=== PATIENT | male | born 1960 | race Caucasian/White ===

== ENCOUNTER → 2016-04-21 | Outpatient (CLI) | payer OTHER | LOC: KOH-I 08:08 | DX: R05 Cough (principal); R06.2 Wheezing | CPT/HCPCS: 71020 ==

== ENCOUNTER → 2016-04-21 | Outpatient (CLI) | payer OTHER | LOC: HEART 5 10:57 | DX: J44.9 Chronic obstructive pulmonary disease, unspecified (principal); F17.210 Nicotine dependence, cigarettes, uncomplicated | CPT/HCPCS: 94010 ==

== ENCOUNTER 2020-04-26 16:04 | Emergency (ER) | payer OTHER ==
[~2020-04-26 16:04] MED LIST: HUMALOG MI100 UNIT/3 SQ; IBU800 MG PO; IBUPROFEN800 MG PO; NORCO 7.5-3251 EACH PO; NORFLEX 100 MG100 MG PO; PREDNISONE20 MG PO; PROTONIX40 MG PO; REMERON30 MG PO; ROBITUSSIN AC480 ML PO; VIBRAMYCIN100 MG PO; Voltaren Gel 1 % TOP; [UNRECOGNIZED DRUG - OTHER] SQ
[2020-04-26] MEDS ORDERED: CEPHALEXIN500 M1 PO (17:38)
[2020-04-26] MEDS ORDERED: BACTROBAN OINT22 GM EXT (17:38)
[2020-04-26] MEDS ORDERED: BACTRIM DS TAB1 EACH PO (17:38)
== END 2020-04-26 17:45 | disposition home or self-care (01) ==
LOC: ER1 16:04
DX: L02.811 Cutaneous abscess of head [any part, except face] (principal); E11.40 Type 2 diabetes mellitus with diabetic neuropathy, unspecified; I10 Essential (primary) hypertension; F17.210 Nicotine dependence, cigarettes, uncomplicated
CPT/HCPCS: 87070; 87077; 87186; 87205; 99282

== ENCOUNTER 2020-07-25 09:05 | Emergency (ER) | payer OTHER ==
[~2020-07-25 09:05] MED LIST changes: +BACTRIM DS TAB1 EACH PO; +BACTROBAN OINT22 GM EXT; +CEPHALEXIN500 M1 PO
[2020-07-25 10:37] LABS: HEMOGLOBIN 15.1 gm/dl (14.0-17.5); RED BLOOD COUNT 4.74 M/UL (4.20-5.50); WHITE BLOOD COUNT 6.8 K/UL (4.5-11.0)
[2020-07-25 11:04] LABS: BUN/CREATININE RATIO 20 (0-10)
[2020-07-25] MEDS ORDERED: PYRIDIUM200 MG PO (11:43)
[2020-07-25] MEDS ORDERED: CEPHALEXIN500 MG PO (11:43)
== END 2020-07-25 11:50 | disposition home or self-care (01) ==
LOC: ER1 09:05
PROVIDERS: Nurse Practitioner
DX: N39.0 Urinary tract infection, site not specified (principal); E11.9 Type 2 diabetes mellitus without complications; F17.210 Nicotine dependence, cigarettes, uncomplicated
CPT/HCPCS: 80053; 81001; 83605; 85025; 85610; 99283

== ENCOUNTER → 2021-06-18 | Outpatient (CLI) | payer OTHER ==
[~2021-06-18] MED LIST changes: +CEPHALEXIN500 MG PO; +CRESTOR 10 MG T10 MG GT; +LEVEMIR FL100 UNIT/1 SQ; +LISINOPRIL40 MG PO; +METFORMIN HCL500 MG PO; +OMEPRAZOLE40 MG PO; +PYRIDIUM200 MG PO
[2021-06-18 13:50] LABS: HEMOGLOBIN 14.9 gm/dl (14.0-17.5); RED BLOOD COUNT 4.82 M/UL (4.20-5.50); WHITE BLOOD COUNT 5.3 K/UL (4.5-11.0)
[2021-06-18 14:38] LABS: BUN/CREATININE RATIO 21 (0-10)
== END ==
LOC: OPSV2 12:06
PROVIDERS: Anesthesiology; Orthopaedic Surgery
DX: Z01.818 Encounter for other preprocedural examination (principal)
CPT/HCPCS: 36415; 80048; 85025; 93005

== ENCOUNTER → 2021-06-24 | Outpatient (CLI) | payer OTHER ==
[~2021-06-24] MED LIST changes: +HYDROCODON-ACE1 EAC2 PO
== END ==
LOC: LAB 10:27
DX: Z20.822 Contact with and (suspected) exposure to COVID-19 (principal)
CPT/HCPCS: U0003

== ENCOUNTER → 2021-06-26 | Day surgery (SDC) | payer OTHER ==
[~2021-06-26] VITALS: Ht 175.3 cm; Wt 71.2 kg
== END | disposition home or self-care (01) ==
LOC: OR 05:48
DX: L72.9 Follicular cyst of the skin and subcutaneous tissue, unspecified (principal); I10 Essential (primary) hypertension; E78.5 Hyperlipidemia, unspecified; E11.9 Type 2 diabetes mellitus without complications; F17.210 Nicotine dependence, cigarettes, uncomplicated
CPT/HCPCS: 82962; J0690; J1100; J1885; J2001; J2250; J2370; J2405; J2704; J3010; J7030; J7120